=== PATIENT | female | born 1970 | race Caucasian/White ===

== ENCOUNTER 2024-02-22 15:37 | Emergency (ER) | payer MEDICAID, OTHER ==
[~2024-02-22] VITALS: Ht 157.5 cm; Wt 113.4 kg
[~2024-02-22 15:37] MED LIST: ALPR0.5T20 PO; CYCL-405 PO; DULO60EC1 PO; IBUP-974 PO; ORE25 PO; TRAZ-471 PO
[2024-02-22 15:52] VITALS: BP 173/93; PULSE 98; RESP 18; TEMP 98.1; O2SAT 94
[2024-02-22 16:14] LABS: BILIRUBIN,URINE NEGATIVE (NEGATIVE); BLOOD, URINE NEGATIVE (NEGATIVE); COLOR,URINE YELLOW (YELLOW); LEUKOCYTE ESTERASE ,URINE TRACE (NEGATIVE); NITRITE, URINE POSITIVE (NEGATIVE); PROTEIN,URINE TRACE (NEGATIVE); UGLUCOSE TRACE (NEGATIVE)
[2024-02-22 16:49] LABS: APPEARANCE,URINE SLIGHTLY HAZY (CLEAR)
[2024-02-22 16:53] LABS: BACTERIA,URINE 2+ /HPF (None Seen); MUCUS,URINE None Seen /LPF (None Seen); RBC,URINE 0 /HPF (0-5); SQUAMOUS EPITHELIAL CELL,UR 0-3 (FEW) /LPF (0-3 (FEW)); WBC,URINE 0-5 /HPF (0-5)
[2024-02-22] MEDS ORDERED: CEFP200T20 PO (17:02)
[2024-02-22] MEDS ORDERED: ACET-8905 PO (17:05)
[2024-02-22] MEDS ORDERED: cefTRIAXone 1,000 MG VIAL ONE (17:09)
[2024-02-22] MEDS ORDERED: LIDOCAINE MPF 1% 5 ML ONE (17:09)
[2024-02-22] MEDS: cefTRIAXone 1,000 MG in LIDOCAINE MPF 1% 2.1 ML IM ONE (17:15)
== END 2024-02-22 17:18 | disposition home or self-care (01) ==
LOC: MED 15:37
DX: N39.0 Urinary tract infection, site not specified (principal); J44.9 Chronic obstructive pulmonary disease, unspecified; I10 Essential (primary) hypertension; E11.9 Type 2 diabetes mellitus without complications; Z79.1 Long term (current) use of non-steroidal anti-inflammatories (NSAID); Z79.899 Other long term (current) drug therapy
CPT/HCPCS: 81001; 87086; 96372; 99283; J0696; J2001

== ENCOUNTER 2024-02-28 13:52 | Emergency (ER) | payer MEDICAID ==
[~2024-02-28] VITALS: Ht 157.5 cm; Wt 113.4 kg
[~2024-02-28 13:52] MED LIST changes: +ACET-8905 PO; +CEFP200T20 PO
[2024-02-28 14:12] VITALS: BP 183/96; PULSE 94; RESP 20; TEMP 98.3; O2SAT 96
[2024-02-28] MEDS ORDERED: ACET-8905 PO (16:20)
[2024-02-28] MEDS ORDERED: PRED20TA5 PO (16:20)
[2024-02-28] MEDS: MORPHINE SULFATE 4 MG/ML SYR IM ONE (16:25)
[2024-02-28 16:39] VITALS: BP 182/83; PULSE 87; RESP 20; TEMP 98.3; O2SAT 96
== END 2024-02-28 16:39 | disposition home or self-care (01) ==
LOC: MED 13:52
DX: M54.50 Low back pain, unspecified (principal); J44.9 Chronic obstructive pulmonary disease, unspecified; J45.909 Unspecified asthma, uncomplicated; I10 Essential (primary) hypertension; E11.9 Type 2 diabetes mellitus without complications; K21.9 Gastro-esophageal reflux disease without esophagitis; Z79.4 Long term (current) use of insulin; Z79.899 Other long term (current) drug therapy
CPT/HCPCS: 81002; 96372; 99283; J2270

== ENCOUNTER 2024-03-13 19:12 | Emergency (ER) | payer MEDICAID ==
[~2024-03-13] VITALS: Ht 157.5 cm; Wt 113.4 kg
[~2024-03-13 19:12] MED LIST changes: +PRED20TA5 PO
[2024-03-13 20:01] VITALS: BP 167/96; PULSE 87; RESP 18; TEMP 98; O2SAT 97
[2024-03-13 21:17] VITALS: BP 158/94; PULSE 90; RESP 18; TEMP 98.2
[2024-03-13] MEDS ORDERED: cefTRIAXone 1,000 MG VIAL ONE (23:14)
[2024-03-13] MEDS ORDERED: LIDOCAINE MPF 1% 5 ML ONE (23:15)
[2024-03-13] MEDS: KETOROLAC 60 MG/2 ML VIAL IM ONE (23:27)
[2024-03-13] MEDS: cefTRIAXone 1,000 MG in LIDOCAINE MPF 1% 2.1 ML IM ONE (23:27)
[2024-03-13 23:56] LABS: APPEARANCE,URINE CLEAR (CLEAR); BILIRUBIN,URINE NEGATIVE (NEGATIVE); BLOOD, URINE NEGATIVE (NEGATIVE); COLOR,URINE YELLOW (YELLOW); LEUKOCYTE ESTERASE ,URINE NEGATIVE (NEGATIVE); NITRITE, URINE NEGATIVE (NEGATIVE); PH,URINE 6.5 (5.0-9.0); PROTEIN,URINE NEGATIVE (NEGATIVE); UGLUCOSE NEGATIVE (NEGATIVE); UROBILINOGEN,URINE 0.2 EU/dL (0.2 - 1)
[2024-03-14] MEDS ORDERED: SOLI5TAB PO (01:23)
[2024-03-14] MEDS ORDERED: METR-435 PO (01:23)
[2024-03-14] MEDS ORDERED: NAPR-337 PO (01:29)
[2024-03-14 01:32] VITALS: O2SAT 98
== END 2024-03-14 01:28 | disposition home or self-care (01) ==
LOC: MED 19:12
DX: N76.0 Acute vaginitis (principal); B96.89 Other specified bacterial agents as the cause of diseases classified elsewhere; J45.909 Unspecified asthma, uncomplicated; E11.9 Type 2 diabetes mellitus without complications; K21.9 Gastro-esophageal reflux disease without esophagitis; I10 Essential (primary) hypertension; Z79.899 Other long term (current) drug therapy
CPT/HCPCS: 81003; 87210; 96372; 99284; J0696; J1885; J2001

== ENCOUNTER 2024-03-24 15:38 | Emergency (ER) | payer MEDICAID ==
[~2024-03-24] VITALS: Ht 157.5 cm; Wt 113.4 kg
[~2024-03-24 15:38] MED LIST changes: +METR-435 PO; +NAPR-337 PO; +SOLI5TAB PO
[2024-03-24 15:50] VITALS: BP 181/102; PULSE 85; RESP 18; TEMP 97.6; O2SAT 96
[2024-03-24] MEDS ORDERED: HYDR-5071 PO (18:52)
[2024-03-24] MEDS: MORPHINE SULFATE 4 MG/ML SYR IM ONE (19:06)
[2024-03-24] MEDS ORDERED: NITR100C7 PO (19:13)
== END 2024-03-24 19:31 | disposition home or self-care (01) ==
LOC: MED 15:38
DX: G89.29 Other chronic pain (principal); M54.50 Low back pain, unspecified; N30.90 Cystitis, unspecified without hematuria; J45.909 Unspecified asthma, uncomplicated; K21.9 Gastro-esophageal reflux disease without esophagitis; E11.9 Type 2 diabetes mellitus without complications; I10 Essential (primary) hypertension; Z79.1 Long term (current) use of non-steroidal anti-inflammatories (NSAID); Z79.899 Other long term (current) drug therapy
CPT/HCPCS: 96372; 99283; J2270

== ENCOUNTER 2024-04-12 17:57 | Emergency (ER) | payer MEDICAID ==
[~2024-04-12] VITALS: Ht 157.5 cm; Wt 113.4 kg
[~2024-04-12 17:57] MED LIST changes: +HYDR-5071 PO; +NITR100C7 PO
[2024-04-12 18:21] VITALS: BP 164/97; PULSE 103; RESP 20; TEMP 97.9; O2SAT 95
[2024-04-12] MEDS ORDERED: ACET-8905 PO (19:27)
[2024-04-12] MEDS ORDERED: SOLI5TAB PO (19:27)
[2024-04-12 19:39] VITALS: BP 164/97; PULSE 103; RESP 20; TEMP 36.61404; O2SAT 95
== END 2024-04-12 19:39 | disposition home or self-care (01) ==
LOC: MED 17:57
DX: G89.29 Other chronic pain (principal); M54.9 Dorsalgia, unspecified; Z76.0 Encounter for issue of repeat prescription; J45.909 Unspecified asthma, uncomplicated; E11.9 Type 2 diabetes mellitus without complications; I10 Essential (primary) hypertension; K21.9 Gastro-esophageal reflux disease without esophagitis; Z79.1 Long term (current) use of non-steroidal anti-inflammatories (NSAID); Z79.899 Other long term (current) drug therapy
CPT/HCPCS: 99281; 99283

== ENCOUNTER 2024-04-16 15:26 | Emergency (ER) | payer MEDICAID ==
[~2024-04-16] VITALS: Ht 157.5 cm; Wt 113.4 kg
[2024-04-16 15:42] VITALS: PULSE 110; RESP 18; TEMP 97; O2SAT 94
[2024-04-16] MEDS: MORPHINE SULFATE 4 MG/ML SYR IM ONE (16:39)
[2024-04-16 17:41] LABS: APPEARANCE,URINE CLEAR (CLEAR); BILIRUBIN,URINE NEGATIVE (NEGATIVE); BLOOD, URINE NEGATIVE (NEGATIVE); COLOR,URINE YELLOW (YELLOW); LEUKOCYTE ESTERASE ,URINE NEGATIVE (NEGATIVE); NITRITE, URINE NEGATIVE (NEGATIVE); PH,URINE 6.5 (5.0-9.0); PROTEIN,URINE NEGATIVE (NEGATIVE); UGLUCOSE NEGATIVE (NEGATIVE); UROBILINOGEN,URINE 0.2 EU/dL (0.2 - 1)
[2024-04-16 18:05] VITALS: BP 146/95; PULSE 96; RESP 18; TEMP 36.11400; O2SAT 93
== END 2024-04-16 18:05 | disposition home or self-care (01) ==
LOC: MED 15:26
DX: M17.12 Unilateral primary osteoarthritis, left knee (principal); G89.29 Other chronic pain; M54.9 Dorsalgia, unspecified; J45.909 Unspecified asthma, uncomplicated; K21.9 Gastro-esophageal reflux disease without esophagitis; E11.9 Type 2 diabetes mellitus without complications; I10 Essential (primary) hypertension; Z79.1 Long term (current) use of non-steroidal anti-inflammatories (NSAID); Z79.899 Other long term (current) drug therapy
CPT/HCPCS: 81003; 96372; 99283; J2270

== ENCOUNTER 2024-04-19 12:59 | Emergency (ER) | payer MEDICAID ==
[~2024-04-19] VITALS: Ht 157.5 cm; Wt 113.4 kg
[2024-04-19 13:10] VITALS: BP 169/79; PULSE 111; RESP 17; TEMP 97.7; O2SAT 94
[2024-04-19] MEDS: KETOROLAC 30 MG/ML VIAL IM ONE (15:30)
[2024-04-19] MEDS ORDERED: NAPR-1704 PO (17:42)
[2024-04-19] MEDS ORDERED: PRED20TA5 PO (17:42)
== END 2024-04-19 17:50 | disposition home or self-care (01) ==
LOC: MED 12:59
DX: S49.91XA Unspecified injury of right shoulder and upper arm, initial encounter (principal); M25.521 Pain in right elbow; E11.9 Type 2 diabetes mellitus without complications; K21.9 Gastro-esophageal reflux disease without esophagitis; I10 Essential (primary) hypertension; J44.9 Chronic obstructive pulmonary disease, unspecified; M06.9 Rheumatoid arthritis, unspecified; M19.90 Unspecified osteoarthritis, unspecified site; F31.9 Bipolar disorder, unspecified; Z79.899 Other long term (current) drug therapy; X58.XXXA Exposure to other specified factors, initial encounter; Y92.89 Other specified places as the place of occurrence of the external cause; Y93.89 Activity, other specified; Y99.8 Other external cause status
CPT/HCPCS: 73030; 73080; 96372; 99284; J1885

== ENCOUNTER 2024-05-05 14:05 | Emergency (ER) | payer MEDICAID ==
[~2024-05-05] VITALS: Ht 157.5 cm; Wt 113.4 kg
[~2024-05-05 14:05] MED LIST changes: +NAPR-1704 PO
[2024-05-05 14:09] VITALS: BP 136/81; PULSE 103; RESP 18; TEMP 98.6; O2SAT 93
[2024-05-05] MEDS: MORPHINE SULFATE 4 MG/ML SYR IM ONE (16:21)
== END 2024-05-05 16:34 | disposition home or self-care (01) ==
LOC: MED 14:05
DX: M19.011 Primary osteoarthritis, right shoulder (principal); G89.29 Other chronic pain; M54.50 Low back pain, unspecified; J45.909 Unspecified asthma, uncomplicated; K21.9 Gastro-esophageal reflux disease without esophagitis; I10 Essential (primary) hypertension; E11.9 Type 2 diabetes mellitus without complications; Z79.1 Long term (current) use of non-steroidal anti-inflammatories (NSAID); Z79.899 Other long term (current) drug therapy
CPT/HCPCS: 96372; 99283; J2270

== ENCOUNTER 2024-05-18 09:40 | Emergency (ER) | payer MEDICAID ==
[~2024-05-18] VITALS: Ht 157.5 cm; Wt 117.9 kg
[2024-05-18 09:51] VITALS: BP 160/90; PULSE 98; RESP 17; TEMP 98.2; O2SAT 93
--- NOTE | 2024-05-18 10:00 | NUR ---
PT W/C ASSISTED TO CHAIR B
--- NOTE | 2024-05-18 10:22 | NUR ---
PA LY EVALUATING PT
[2024-05-18] MEDS ORDERED: ACET-8905 PO ×2 (10:45→10:50)
[2024-05-18] MEDS: KETOROLAC 30 MG/ML VIAL IM ONE (10:57)
[2024-05-18 11:21] VITALS: BP 152/88; PULSE 88; RESP 16; TEMP 98.1; O2SAT 99
--- NOTE | 2024-05-18 11:21 | NUR ---
Patient discharged with v/s stable. Written and verbal after care instructions FOR KNEE PAIN given and explained. Patient alert, oriented and verbalized understanding of instructions. Ambulatory with steady gait. All questions addressed prior to discharge. ID band removed. Patient advised to follow up with PMD. Rx of HYDROCODONE given. Opportunity to ask questions provided and answered.
== END 2024-05-18 11:21 | disposition home or self-care (01) ==
LOC: MED 09:40
DX: M17.0 Bilateral primary osteoarthritis of knee (principal); J45.909 Unspecified asthma, uncomplicated; E11.9 Type 2 diabetes mellitus without complications; K21.9 Gastro-esophageal reflux disease without esophagitis; I10 Essential (primary) hypertension; F31.9 Bipolar disorder, unspecified; Z79.899 Other long term (current) drug therapy
CPT/HCPCS: 96372; 99283; J1885

== ENCOUNTER 2024-05-25 16:20 | Emergency (ER) | payer MEDICAID ==
[~2024-05-25] VITALS: Ht 157.5 cm; Wt 113.4 kg
[2024-05-25 17:01] VITALS: BP 108/78; PULSE 93; RESP 19; TEMP 98; O2SAT 98
[2024-05-25] MEDS ORDERED: ACET-8905 PO (17:59)
[2024-05-25] MEDS ORDERED: NAPR-337 PO (17:59)
[2024-05-25] MEDS: HYDROcodone/APAP 10/325 MG 1 TAB TAB PO PRN (18:04)
[2024-05-25] MEDS: KETOROLAC 30 MG/ML VIAL IM ONE (18:05)
[2024-05-25] MEDS: DEXAMETHASONE 10 MG/ML VIAL IM ONE (18:06)
== END 2024-05-25 18:23 | disposition home or self-care (01) ==
LOC: MED 16:20
DX: G89.29 Other chronic pain (principal); M25.561 Pain in right knee; M25.562 Pain in left knee; J45.909 Unspecified asthma, uncomplicated; E11.9 Type 2 diabetes mellitus without complications; K21.9 Gastro-esophageal reflux disease without esophagitis; I10 Essential (primary) hypertension; M19.90 Unspecified osteoarthritis, unspecified site; Z79.899 Other long term (current) drug therapy
CPT/HCPCS: 96372; 99284; J1100; J1885

== ENCOUNTER 2024-07-07 18:04 | Emergency (ER) | payer MEDICAID ==
[~2024-07-07] VITALS: Ht 157.5 cm; Wt 113.4 kg
[2024-07-07 18:39] VITALS: BP 147/75; PULSE 87; RESP 20; TEMP 98; O2SAT 95
[2024-07-07 20:48] LABS: ANION GAP 7.7 (8-16); CALCIUM 8.6 mg/dL (8.5-10.1); CARBON DIOXIDE 34.2 mmol/L (21-32); CREATININE 0.8 mg/dL (0.6-1.3); POTASSIUM 3.9 mmol/L (3.5-5.1)
[2024-07-07] MEDS: MORPHINE SULFATE 4 MG/ML SYR IVP ONE (20:50)
[2024-07-07] MEDS: NACL 0.9% 1,000 ML IV ONE (20:50)
[2024-07-07 20:55] LABS: BASOPHILS # (AUTO) 0.2 K/uL (0.00-0.22); BASOPHILS % (AUTO) 1.2 % (0.0-2.0); EOSINOPHILS # (AUTO) 0.3 K/uL (0-0.4); EOSINOPHILS % (AUTO) 2.1 % (0.0-4.0); HEMATOCRIT 36.4 % (36-48); HEMOGLOBIN 11.3 g/dL (12.0-16.0); LYMPHOCYTES # (AUTO) 2.3 K/uL (2.5-16.5); MEAN CORPUSCULAR HEMOGLOBIN 25 pg (27-31); MEAN CORPUSCULAR HGB CONC 31 g/dL (33-37); MEAN CORPUSCULAR VOLUME 80.4 fL (80-94); MONOCYTES % (AUTO) 6.8 % (1.7-9.3); NEUTROPHILS # (AUTO) 10.5 K/uL (1.8-7.7); NEUTROPHILS % (AUTO) 73.9 % (42.2-75.2); PLATELET COUNT (AUTO) 357 K/uL (140-450); RED BLOOD CELL COUNT(AUTO) 4.53 MIL/uL (4.20-5.40); RED CELL DISTRIBUTION WIDTH 18.3 % (11.6-13.7); WHITE BLOOD COUNT (AUTO) 14.2 K/uL (4.8-10.8)
[2024-07-07 20:56] LABS: ALBUMIN 2.9 g/dL (3.4-5.0); BILIRUBIN,DIRECT 0.1 mg/dL (0.0-0.3); TOTAL BILIRUBIN 0.2 mg/dL (0.0-1.0); TOTAL PROTEIN, SERUM 6.9 g/dL (6.4-8.2)
[2024-07-07 22:57] LABS: APPEARANCE,URINE CLEAR (CLEAR); BILIRUBIN,URINE NEGATIVE (NEGATIVE); BLOOD, URINE NEGATIVE (NEGATIVE); COLOR,URINE YELLOW (YELLOW); LEUKOCYTE ESTERASE ,URINE NEGATIVE (NEGATIVE); NITRITE, URINE NEGATIVE (NEGATIVE); PH,URINE 6.5 (5.0-9.0); PROTEIN,URINE NEGATIVE (NEGATIVE); UGLUCOSE NEGATIVE (NEGATIVE); UROBILINOGEN,URINE 0.2 EU/dL (0.2 - 1)
[2024-07-07] MEDS ORDERED: TRAM50TA3 PO (23:09)
[2024-07-07 23:25] VITALS: BP 137/76; PULSE 87; RESP 20; TEMP 98; O2SAT 95
== END 2024-07-07 23:26 | disposition home or self-care (01) ==
LOC: MED 18:04
DX: M06.9 Rheumatoid arthritis, unspecified (principal); R10.30 Lower abdominal pain, unspecified; R32 Unspecified urinary incontinence; R05.9 Cough, unspecified; E11.9 Type 2 diabetes mellitus without complications; I10 Essential (primary) hypertension; E78.5 Hyperlipidemia, unspecified; M19.90 Unspecified osteoarthritis, unspecified site; Z79.899 Other long term (current) drug therapy
CPT/HCPCS: 36415; 80048; 80076; 81003; 82150; 83690; 85025; 93005; 96361; 96374; 99284; J2270; J7030